=== PATIENT | male | born 1965 | race Caucasian/White ===

== ENCOUNTER 2023-11-01 06:08 | Day surgery (SDC) | payer BC, SELFPAY ==
[2023-10-29 14:02] VITALS: BMI 30.9
[2023-11-01] VITALS (10 sets, daily range): BP systolic 136–162; BP diastolic 66–86; BMI 30.3
[2023-11-01] MEDS: TYLENOL 1000 MG PO (07:05)
[2023-11-01] MEDS: NORMOSOL-R/PLASMALYTE-A 1000 IV (07:06)
--- NOTE | 2023-11-01 07:12 | W.SUR.PREOP ---
Pre-Operative Surgical Note
-
I have examined this patient prior to the performance of the scheduled procedure.
The patient's condition is unchanged from the time of the current History and
Physical and the patient is able to undergo the scheduled procedure.
--- NOTE | 2023-11-01 07:12 | HP.FOC2 ---
Focused History & Physical
Chief Complaint
HPI:
Chief Complaint: Left inguinal hernia
HPI / Indication for Planned Procedure: Robotic left inguinal hernia repair with mesh, possible right
Relevant Past Medical History: Other (Basal cell carcinoma, adenomatous colon polyp)
Relevant Social History: Negative
Relevant Family History: Negative
Relevant Past Surgical History: Negative
Review of Systems
Review of Pertinent Systems: All Systems Negative
Medication
See Medication form for detailed medications: Yes
Medication List (including Herbals & OTC):
loratadine 10 mg tablet (Claritin) 10 mg PO HS 10/25/23
omega-3 fatty acids 500 mg capsule 500 mg PO DAILY 10/25/23
pantoprazole 40 mg tablet,delayed release 40 mg PO DAILY 10/25/23
pediatric multivitamin no.76 (Flintstones Complete chewable tablet) 1 tab PO DAILY 10/25/23
psyllium 1 tsp PO DAILY 10/25/23
Medications Reviewed: Yes
Allergies and Reactions
Patient has Allergies: Yes
Noted Allergies and Reactions:
Allergy/AdvReac Type Severity Reaction Status Date / Time
latex Allergy Rash Verified 11/01/23 06:47
Penicillins Allergy CHILDHOOD Verified 11/01/23 06:47
Pertinent Physical Exam
All Other Systems: Negative
Head/Neck: Normal
Diagnosis / Assessment
This is a 58-year-old male with a symptomatic left inguinal hernia.
Plan / Procedure
Will plan for a robotic left inguinal hernia repair with mesh, possible right.
Anesthesia/Sedation to be done by Anesthesia Provider: Yes
--- NOTE | 2023-11-01 09:12 | W.IMMPOSTOP ---
Surgical Immed Post Op Note
-
Primary Surgeon: Yevgeniy Cunningham MD
Assisting Surgeon: None
Pre-op Diagnosis: Left inguinal hernia
Post-op Diagnosis: Same
Procedure Performed: Robotic left inguinal hernia repair with mesh (RAOUL approach)
Anesthesia Type: General
Specimen / Cultures: None
Estimated Blood Loss: 3 cc
Complications: None
Operative Findings: Moderate-sized direct inguinal hernia passing medial to the epigastrics but into the inguinal canal and not the direct space. Space reinforced with a large left Bard 3D max polypropylene uncoated mesh. No true indirect or
femoral defects. No cord lipoma.
POST OP PLAN:
Will discharge home with an ice pack after voiding.
--- NOTE | 2023-11-01 09:16 | OR.RPT ---
Operative Report
Operative Report
Patient Name: Tam Allen
: 1965
Date of Operation: 11/01/2023
Preoperative Diagnosis: Reducible Inguinal hernia, left
Postoperative Diagnosis: Same
Procedure(s):
Robotic left inguinal Hernia Repair with mesh, (RAOUL approach)
Surgeon(s):
Dr. Cunningham
Plaster Tender(s):
FRANK Duran
Anesthesia: General
Estimated Blood Loss: 3 cc
Urine Output: None
Drains/Lines/Implants: Large 3D Max Bard mid weight mesh
Specimens: None
Indication for surgery:
The patient has a history of groin pain and noted on exam to have a Left inguinal Hernia(s). Following review of therapeutic options they have elected to undergo a minimally invasive repair.
Operative findings:
Moderate-sized direct inguinal hernia passing medial to the epigastrics but into the inguinal canal and not the direct space. Space reinforced with a large left Bard 3D max polypropylene uncoated mesh. No true indirect or femoral defects. No cord
lipoma.
Details of the operation:
The patient was brought to the Operating Room and placed in the supine position with the arms tucked. IV antibiotics were infused and Venodyne stockings placed. Following uneventful induction of general endotracheal anesthesia, an orogastric tube
were placed. The abdomen was prepped and draped in the usual sterile fashion. The abdomen was entered using a Veress technique which required 1 pass, pneumoperitoneum to 15 mmHg was obtained without difficulty. An 8mm trochar was passed through
the abdominal wall roughly 20 cm cephalad to the inguinal canal. We then confirmed that no inadvertent injury was made while passing the trocar or Veress needle. We then placed two additional 8 mm ports in the left upper and right upper quadrants.
We then docked the robot with a Prograsper in the left hand port and monopolar scissors in the right. No right inguinal hernia was identified, left inguinal hernia that appeared initially to be in the indirect space was seen, this contained some
small bowel which reduced with simple pressure over the left groin space externally. We then began by creating a flap at the level of the ASIS laterally working our way medially to the medial umbilical fold. Staying onto the peritoneum we were
able to circumferentially dissect around the hernia sac and and peel it off of the underlying spermatic cord and testicular vessels, taking care to preserve them. Medially we identified the midline pubis as well as Iván's ligament and ensured to
dissect 2 cm below the pubic rim over the bladder. After exposure of the entire myopectineal orifice we identified and reduced: A medium sized direct inguinal hernia that had herniated down the inguinal canal and not in the typical direct space, no
true indirect inguinal hernia, no femoral hernia, or cord lipoma were identified
We then fixated a large 3D max mesh with a 2-0 Vicryl stitch at coopers medially and superior laterally. The flap was then closed with a running 2-0 barbed monocryl suture ensuring that the tail was cut flush with the medial fat pad so that no
barbs were exposed. During the closure of the flap an Angiocath was inserted and 20 cc of quarter percent Marcaine was instilled. The area in the flap cavity was then evacuated of air confirming that the mesh was flush and there were no folds. All
needles and instruments were then removed and the robot was undocked. The abdomen was then desufflated, and pneumoperitoneum evacuated. All skin sites were then closed with 4-0 Monocryl followed by Dermabond. Counts were correct and overall, the
patient tolerated the procedure well and was taken to the Recovery Room postoperatively in stable condition.
The assistance of FRANK Duran was required due to the complexity of the procedure. During the procedure Carolyn assisted with retraction, instrument/mesh/needle exchanges, and closure of the wound. I was the attending physician and performed the
procedure with assistance of the PA above. I was present for all portions of the case, excluding skin closure.
Yevgeniy Cunningham MD
== END 2023-11-01 13:30 | disposition home or self-care (01) ==
LOC: SDS 06:08
PROVIDERS: ATTENDING PHYSICIAN Surgery; FAMILY PHYSICIAN Family Medicine
DX: K40.90 Unilateral inguinal hernia, without obstruction or gangrene, not specified as recurrent (principal)
CPT/HCPCS: 49650; 36415; 93005; C1781

== ENCOUNTER 2023-12-20 06:43 | Emergency (ER) | payer BC, SELFPAY ==
[2023-12-20 06:48] VITALS: BP 141/86
--- NOTE | 2023-12-20 07:28 | ED.GENMED ---
History of Present Illness
General
Chief Complaint: Abdominal Symptoms
Source: patient
Exam Limitations: none
Time Seen by Provider: 12/20/23 07:14
History of Present Illness
History of Present Illness:
58-year-old male presents with relatively sudden onset nausea vomiting diarrhea and abdominal pain about 7 PM last night. This was about 12 hours ago. Low-grade fever. No blood or mucus in the stool. No recent unusual travel history. Did return
from [place] 2 days ago. No recent antibiotics. No one else is ill. No unusual food ingestion. No history of same. Symptoms are moderate in nature. Feels dehydrated.
Past History
Past History
ED Past Medical History: HTN and Hypercholesterolemia
ED Past Surgical History: Orthopedic and Other (Hernia)
Social History
Tobacco: Non-smoker
Alcohol: Occasional
Personal:
Living: with family
Family History
Family History: Other (Noncontributory)
Review of Systems
Review of Systems
All Other Systems: Not applicable
Respiratory: Reports no symptoms
: Reports no symptoms
Phy Exam
Physical Exam
Physical Exam:
GENERAL: Alert and oriented in no apparent distress
EYE: Orbits normal.
NECK: Supple
ENT: Pharynx without erythema
CARDIAC: Regular rate and rhythm without any obvious murmurs.
LUNGS: Clear breath sounds,normal
ABDOMEN: Soft, no distention. Bowel sounds present. Nonlocalizing mild diffuse lower abdominal tenderness
NEUROLOGICAL: Alert and oriented , grossly non-focal
SKIN: Warm and dry, no rash or lesion, no discoloration, skin intact.
MUSCULOSKELETAL: No edema,no deformity.Good color
PSYCH: Normal and appropriate interaction.
Course
Orders/Labs/Results
Orders:
Orders
12/20/23 07:26
IV Insert/Care/Rem.- Treatment PRN
0.9% Sodium Chloride 1000 ml [Nss] 1,000 ml IV BOLUS
Iohexol [Omnipaque] See Protocol PO NOW STA
Ondansetron Injectable [Zofran] 4 mg IV NOW STA
12/20/23 07:27
CT Abd/pel W Iv And Oral Contr Urgent
Comment:
Reason For Exam: Lower abdominal pain/vomiting/diarrhea
12/20/23 07:30
COVID-19 Antigen Urgent
Source: Nasal Swab
Complete Blood Count/With Diff Urgent
Comprehensive Metabolic Panel Urgent
Lipase Urgent
Influenza A+B Rapid Molecular Urgent
ASHVIN Source: Nasal Swab
Specimen Description:
12/20/23 09:39
0.9% Sodium Chloride 1000 ml [Nss] 1,000 ml IV BOLUS
12/20/23 11:36
STOOL [C difficile Antigen & Toxins] Urgent
ASHVIN Source: Feces/Stool
Specimen Description:
Date Specimen was Collected: 12/20/23
Time Specimen was Collected: 11:34
Stool Culture Urgent
ASHVIN Source: Feces/Stool
Specimen Description:
Date Specimen was Collected: 12/20/23
Time Specimen was Collected: 11:34
Abnormal Lab Results
12/20/23
07:30
WBC 12.6 H 10^3/uL
(4.8-10.8)
Abs Immat Gran (auto) 0.1 H 10^3/uL
(0-0.05)
Absolute Neuts (auto) 11.5 H 10^3/uL
(1.4-6.5)
Absolute Lymphs (auto) 0.3 L 10^3/uL
(1.2-3.4)
Absolute Monos (auto) 0.7 H 10^3/uL
(0.1-0.6)
Neutrophils % 91.6 H %
(42.2-75.2)
Lymphocytes % 2.5 L %
(20.5-51.1)
Carbon Dioxide 17 L mmol/L
(22-30)
BUN 22 H mg/dl
(9-20)
Glucose 152 H mg/dl
(70-99)
12/20/23 07:30
12/20/23 07:30
Vital Signs
Initial and Last Documented VS:
Initial Vital Signs
Temp Pulse Resp BP Pulse Ox
99.7 F 100 20 141/86 98
12/20/23 06:48 12/20/23 06:48 12/20/23 06:48 12/20/23 06:48 12/20/23 06:48
Last Documented Vital Signs
Temp Pulse Resp BP Pulse Ox
99.7 F 92 15 143/71 97
12/20/23 06:48 12/20/23 11:44 12/20/23 11:44 12/20/23 11:44 12/20/23 11:44
MDM/Problems Addressed
Differential Diagnosis Includes:
Patient describing colitis/enteritis neuritis/food poisoning. However with lower abdominal tenderness consider appendicitis and diverticulitis. Workup in progress.
*Radiology
Radiology exam reviewed: radiology read reviewed (Terminal ileitis)
*Pulse Oximetry
Patient hypoxic: no
*Critical Care Note
Total Time (30-74mins, 75-104mins- exclusive of procedures): Not Applicable
Data Reviewed
Review of Other/Old Records Reveals: Labs and Testing
Update Note
Update Note:
Patient doing well. Stool specimen give. Symptomatic treatment and follow-up
ED Attending Note
-
Portions of this chart may have been created with voice recognition software.� Occasional wrong word or��sound alike� substitutions may have occurred due to the inherent limitations of voice recognition software.
Discharge Plan
Departure
Patient Disposition: Home (Routine Discharge)
Date of Disposition: 12/20/23
Time of Disposition: 12:03
Patient with high blood pressure during this ER visit?: Yes
Discharge Problem:
Enteritis
Instructions: Nausea and Vomiting, Adult (DC), Acute Diarrhea, Abdominal Pain, BLOOD PRESSURE
Prescriptions:
New
ondansetron 4 mg tablet,disintegrating
4 mg PO TIDPRN PRN (Reason: nausea/vomiting) Qty: 14 0RF
No Action
psyllium Powder
1 tbsp PO DAILY
pantoprazole 40 mg Tablet,Delayed Release (Dr/Ec)
40 mg PO DAILY
loratadine [Claritin] 10 mg Tablet
10 mg PO HS
omega-3 fatty acids 500 mg Capsule
500 mg PO DAILY
multivitamin Tablet
1 tab PO DAILY
Referrals:
Jaden Gamez, DO [Family Provider] - Follow up in 2-3 days
Activity Restrictions/Additional Instructions:
Light diet. Stay well-hydrated
Stool should be back in 2 to 3 days
Recheck with increased symptoms recurrent vomiting high fever abdominal pain or if symptoms have not resolved in 2 to 3 days
Interventions
Interventions:
*Risk Screen - Suicide Last Done: 12/20/23 06:48
*Neglect/Abuse Screening Last Done: 12/20/23 06:48
ED- Fall Risk Assessment Last Done: 12/20/23 07:40
*ED COVID-19 Vaccine History Last Done: 12/20/23 06:48
IE-Poidwm-Vrlvfamthq Assessment Last Done: 12/20/23 07:40
Discharge Date and Time
Print Language: NAURUAN
[2023-12-20] MEDS: ZOFRAN 4 MG IV (07:36)
[2023-12-20] MEDS: OMNIPAQUE 50 ML PO (07:36)
[2023-12-20] MEDS: NSS 1000 IV ×2 (07:37→09:54)
[2023-12-20 07:42] LABS: % Basophils 0.1 % (0-2); % Immature Granulocytes 0.5 % (0-0.5); % Lymphocytes 2.5 % (20.5-51.1); % Monocytes 5.3 % (1.7-9.3); % Neutrophils 91.6 % (42.2-75.2); Absolute Immature Granulocytes 0.1 10^3/uL (0-0.05); Absolute Lymphocytes 0.3 10^3/uL (1.2-3.4); Absolute Monocytes 0.7 10^3/uL (0.1-0.6); Absolute Neutrophils 11.5 10^3/uL (1.4-6.5); Hematocrit 47.5 % (39.0-52.0); Hemoglobin 17.3 g/dL (13.0-18.0); Mean Corp Hgb Conc. 36.4 g/dL (33.0-37.0); Mean Corpuscular Hgb 30.4 pg (27.0-31.0); Mean Corpuscular Volume 83.5 fL (80.0-94.0); Mean Platelet Volume 8.9 fL (7.4-10.4); Nucleated Red Blood Cells % 0 % (-); Platelet Count 298 10^3/uL (130-400); Red Blood Cell Count 5.69 10^6/uL (4.70-6.10); Red Cell Dist. Width 12.3 % (11.5-14.5); White Blood Cell Count 12.6 10^3/uL (4.8-10.8)
[2023-12-20 07:53] LABS: ALT (SGPT) 23 U/L (0-50); AST (SGOT) 29 U/L (17-59); Alkaline Phosphatase 56 U/L (38-126); Blood Urea Nitrogen 22 mg/dl (9-20); Carbon Dioxide 17 mmol/L (22-30); Chloride 105 mmol/L (98-107); Glucose 152 mg/dl (70-99); Lipase 41 U/L (23-300); Potassium 4.3 mmol/L (3.5-5.1); Sodium 140 mmol/L (135-145); Total Bilirubin 1.3 mg/dl (0.2-1.3); Total Protein 7.5 g/dl (6.3-8.2); eGFR > 60.00
[2023-12-20 07:54] LABS: COVID-19 Antigen Negative (Negative)
[2023-12-20 08:00] VITALS: BP 142/74
[2023-12-20 09:55] VITALS: BP 134/69
[2023-12-20 11:44] VITALS: BP 143/71
== END 2023-12-20 12:20 | disposition home or self-care (01) ==
LOC: EMR 06:43
PROVIDERS: EMERGENCY PHYSICIAN Emergency Medicine; FAMILY PHYSICIAN Family Medicine
DX: K52.9 Noninfective gastroenteritis and colitis, unspecified (principal); I10 Essential (primary) hypertension; E78.00 Pure hypercholesterolemia, unspecified
CPT/HCPCS: 99284; 96374; 96361; 74177; 80053; 83690; 85025; 87045; 87046; 87324; 87427; 87449; 87502; 87811; Q9967

== ENCOUNTER → 2024-02-12 09:41 | Day surgery (SDC) | payer BC, SELFPAY | LOC: GI 09:41 | PROVIDERS: ATTENDING PHYSICIAN Specialist; FAMILY PHYSICIAN Family Medicine | DX: K22.70 Barrett's esophagus without dysplasia (principal); K22.2 Esophageal obstruction; Z87.19 Personal history of other diseases of the digestive system | CPT/HCPCS: 43239; 88305; 88342 ==

== ENCOUNTER 2025-01-02 06:17 | Day surgery (SDC) | payer BC, SELFPAY | END 2025-01-02 15:14 | disposition home or self-care (01) | LOC: GI 06:17 | PROVIDERS: ATTENDING PHYSICIAN Specialist | DX: Z12.11 Encounter for screening for malignant neoplasm of colon (principal); K63.5 Polyp of colon; Z86.0101 Personal history of adenomatous and serrated colon polyps | CPT/HCPCS: 45380; 88305 ==